=== PATIENT | male | born 1985 | race Two or more races ===

== ENCOUNTER 2019-12-04 14:24 | Outpatient (CLI) | payer OTHER | END 2019-12-04 14:36 | disposition home or self-care (01) | LOC: RAD 14:24 | PROVIDERS: ATTEND General Practice | DX: V49.9XXA Car occupant (driver) (passenger) injured in unspecified traffic accident, initial encounter (principal); M25.572 Pain in left ankle and joints of left foot; M25.571 Pain in right ankle and joints of right foot ==